=== PATIENT | female | born 2000 | race Caucasian/White ===

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

== ENCOUNTER → 2019-01-07 | Outpatient (CLI) | payer SELFPAY ==
--- NOTE | 2019-01-07 17:22 | RADIOLOGY IMAGING REPORT ---
FACILITY: [facility] - [place] PATIENT NAME: Ann Johnson : 2000 MR: [id number] V: [id number] EXAM DATE: [id number] ORDERING PHYSICIAN: JOJO HALE TECHNOLOGIST: Location: [facility] - [place], [place] Patient: Ann Johnson : 2000 Visit/Account:[id number] Date of Sevice: 01/07/2019 Exam type: ELBOW 3 VIEW RIGHT History: Fall, tender to the proximal radius just below elbow Comparison: None FINDINGS: Four views of the right elbow were submitted. There is a subtle lucency traversing the right radial head. This could simply represent a superimposed shadow although an occult fracture to the right rad ial head cannot be excluded. A significant joint effusion is not seen IMPRESSION: 1. There is a subtle lucency traversing the right radial head which may simply represent a superimpo sed shadow although an occult fracture to the right radial head cannot be totally excluded. If sympt oms persist follow-up imaging recommended Report Dictated By: Lesa Stevens MD at 01/07/2019 5:14 PM Report E-Signed By: Lesa Stevens MD at 01/07/2019 5:17 PM WSN:[email or web address]
--- NOTE | 2019-01-07 17:23 | RADIOLOGY IMAGING REPORT ---
FACILITY: [facility] PATIENT NAME: Ann Johnson : 2000 MR: [id number] V: [id number] EXAM DATE: [id number] ORDERING PHYSICIAN: JOJO HALE TECHNOLOGIST: Location: [facility] Patient: Ann Johnson : 2000 Visit/Account:[id number] Date of Sevice: 01/07/2019 ADDENDUM #1 ADDENDUM: At the time the original dictation only a single lateral view of the right forearm is available [facility] subsequently an AP view of the right forearm was submitted to the PACS system. There is been no i nterval change in the dictation. Report Dictated By: Lesa Stevens MD at 01/08/2019 4:05 PM Report E-Signed By: Lesa Stevens MD at 01/08/2019 4:06 PM ORIGINAL REPORT Exam type: FOREARM RIGHT History: Fall tender to proximal radius just below elbow Comparison: Right elbow series performed today. Findings: A single lateral view of the right forearm was submitted no definite fracture dislocation identified IMPRESSION: 1. No definite fracture dislocation identified on this limited single lateral view of the right fore arm Report Dictated By: Lesa Stevens MD at 01/07/2019 5:17 PM Report E-Signed By: Lesa Stevens MD at 01/07/2019 5:18 PM WSN:[email or web address]
== END ==
LOC: RAD 16:30
PROVIDERS: ATTEND Nurse Practitioner
DX: M25.521 Pain in right elbow (principal); M79.601 Pain in right arm